=== PATIENT | male | born 1980 | race Caucasian/White ===

== ENCOUNTER 2024-04-06 21:13 | Emergency (ER) | payer SELFPAY ==
[2024-04-06 21:16] VITALS: BP 129/86
[2024-04-06] MEDS: MOTRIN 800 MG PO (22:46)
[2024-04-06] MEDS: FLEXERIL 10 MG PO (22:46)
[2024-04-06] MEDS: ADACEL 0.5 ML IM (22:47)
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
[2024-04-06 23:45] VITALS: BP 124/82
== END 2024-04-06 23:46 | disposition home or self-care (01) ==
LOC: EMR 21:13
PROVIDERS: EMERGENCY PHYSICIAN Emergency Medicine
DX: S00.83XA Contusion of other part of head, initial encounter (principal); S00.03XA Contusion of scalp, initial encounter; S00.81XA Abrasion of other part of head, initial encounter; S16.1XXA Strain of muscle, fascia and tendon at neck level, initial encounter; Y04.0XXA Assault by unarmed brawl or fight, initial encounter; Z23 Encounter for immunization
CPT/HCPCS: 99284; 90471; 70150; 72050; 90715

== ENCOUNTER 2024-11-17 23:31 | Emergency (ER) | payer SELFPAY ==
[2024-11-17 23:31] VITALS: BMI 26.1
[2024-11-17 23:59] VITALS: BP 134/87
[2024-11-18 01:00] VITALS: BP 118/73
--- NOTE | 2024-11-18 01:24 | ED.GENMED ---
History of Present Illness
General
Chief Complaint: Skin Problem
Source: patient
Exam Limitations: none
Time Seen by Provider: 11/18/24 01:06
History of Present Illness
History of Present Illness:
44yoM with no significant past medical history presenting for evaluation of right leg redness. Patient noticed some redness and pain to his right patellar region 4 days ago after he returned from a walk outside. He believes he was bitten by an
insect. His pain is actually improving but he states the redness has traveled down his leg today which concerned him. He denies any fevers or chills. He is otherwise asymptomatic.
Past History
Past History
ED Past Medical History: Psychiatric
ED Past Surgical History: Other (Hernia repair)
Social History
Tobacco: Non-smoker
Drug: None
Personal: Single
Living: alone
Employment: Employed (Self-employed)
Family History
Family History: Other (Noncontributory)
Phy Exam
General Physical Exam
General Presentation: well appearing and no apparent distress
General age: appears stated age
General Skin: warm and dry
General Habitus: normal
General Mental: alert
ENT Exam
ENT Exam: normocephalic
Pulmonary Exam
Pulmonary Exam: no respiratory distress
Neurological Exam
Neurological Exam: alert
[place] Coma Scale
Eye Opening: Spontaneous
Verbal Response: Oriented
Motor Response: Obeys Commands
GCS Total Score: 15
Musculoskeletal Exam
Musculoskeletal Exam: other (No effusion noted to R knee and ROM is normal. 2+ DP pulse.)
Skin Exam
Skin Exam: other (Very faint erythema noted to R anterior knee and lower leg. No open wounds.)
Psychiatric Exam
Psychiatric Exam: normal mood/affect
Course
Orders/Labs/Results
Orders:
Orders
11/18/24 01:25
Cephalexin Monohydrate [Keflex] 500 mg PO NOW STA
Vital Signs
Initial and Last Documented VS:
Initial Vital Signs
Temp Pulse Resp BP Pulse Ox
98.7 F 76 14 134/87 96
11/17/24 23:59 11/17/24 23:59 11/17/24 23:59 11/17/24 23:59 11/17/24 23:59
Last Documented Vital Signs
Temp Pulse Resp BP Pulse Ox
98.7 F 69 18 118/73 97
11/18/24 01:00 11/18/24 01:00 11/18/24 01:00 11/18/24 01:00 11/18/24 01:25
MDM/Problems Addressed
Differential Diagnosis Includes:
44yoM here with spreading redness to his R leg. Started with redness/pain to his R patellar region 4 days ago. Believes he had a bug bite. No f/c. VSS. He is well appearing in no distress. Very faint redness noted on exam. No evidence of joint
effusion/septic arthritis. RLE is neurovascularly intact. Patient started on a course of Keflex to cover for possible cellulitis. Advised follow-up with PCP and ED return precautions reviewed. Patient discharged in stable condition.
*Pulse Oximetry
SaO2: 97
Oxygen Mode of Delivery: Room air
Patient hypoxic: no (97%)
*Critical Care Note
Total Time (30-74mins, 75-104mins- exclusive of procedures): Not Applicable
ED Attending Note
-
Portions of this chart may have been created with voice recognition software.� Occasional wrong word or��sound alike� substitutions may have occurred due to the inherent limitations of voice recognition software.
Discharge Plan
Departure
Patient Disposition: Home (Routine Discharge)
Date of Disposition: 11/18/24
Time of Disposition: :25
Patient with high blood pressure during this ER visit?: No
Discharge Problem:
Cellulitis of right lower leg
Instructions: Cellulitis (Skin Infection), Adult (DC)
Prescriptions:
New
cephalexin 500 mg capsule
500 mg PO Q6H 7 Days Qty: 27 0RF
No Action
ibuprofen 800 mg tablet
800 mg PO QIDPRN PRN (Reason: pain, fever) Qty: 30 0RF
Referrals:
[facility] [Provider Group]
Activity Restrictions/Additional Instructions:
Take antibiotics as prescribed.
Please follow-up with a family doctor. Return to the ER with any new or worsening symptoms including fevers or chills.
Interventions
Interventions:
*Risk Screen - Suicide Last Done: 11/17/24 23:59
*General Assessment Last Done: 11/18/24 00:58
*Neglect/Abuse Screening Last Done: 11/18/24 00:58
*ED- Fall Risk Assessment Last Done: 11/18/24 00:58
*ED COVID-19 Vaccine History Last Done: 11/18/24 00:58
*Nursing Disposition Last Done: 11/18/24 01:53
ED-Skin Assessment Last Done: 11/18/24 01:53
Discharge Date and Time
Discharge Date/Time: 11/18/24 01:54
Print Language: CONGOLESE
[2024-11-18] MEDS: KEFLEX 500 MG PO (01:50)
== END 2024-11-18 01:54 | disposition home or self-care (01) ==
LOC: EMR 23:31
PROVIDERS: EMERGENCY PHYSICIAN Emergency Medicine
DX: L03.115 Cellulitis of right lower limb (principal)
CPT/HCPCS: 99283